=== PATIENT | female | born 1995 | race Hispanic/Latino ===

== ENCOUNTER 2020-08-28 16:43 | Emergency (ER) | payer SELFPAY ==
[2020-08-28 18:16] LABS: Bacteria/HPF 4+ HPF (None Seen); Bilirubin Negative (Negative); Blood, Urine Negative (Negative); Clarity Clear (Clear); Glucose, Urine (Dipstick) Normal (Negative); Ketone, Urine Negative (Negative); Leukocyte 250 Leu/uL (Negative); Nitrite 2+ (Negative); Protein, Urine (Dipstick) Negative (Neg-Trace); RBC/HPF 0-3 HPF (0-3); Specific Gravity, Urine 1.004 (1.002-1.036); Squamous Epithelial 0-3 HPF (0-3); Urobilinogen Normal mg/dL (Less than 2)
[2020-08-28] MEDS ORDERED: Azithromycin 250 MG TAB ONE (20:08)
[2020-08-28] MEDS ORDERED: cefTRIAXone\\ROCEPHIN 500 MG VIAL ONE (20:08)
[2020-08-28] MEDS ORDERED: Lidocaine 1% PF 5 ML VIAL ONE (20:08)
[2020-08-30 13:03] LABS: Chlamydia by PCR Not Detected (NotDetected); GC by PCR DETECTED (NotDetected)
== END 2020-08-28 20:49 | disposition home or self-care (01) ==
LOC: ERS 16:43
DX: O23.511 Infections of cervix in pregnancy, first trimester (principal); O23.41 Unspecified infection of urinary tract in pregnancy, first trimester; Z20.2 Contact with and (suspected) exposure to infections with a predominantly sexual mode of transmission; Z3A.09 9 weeks gestation of pregnancy
CPT/HCPCS: 81003; 81015; 87077; 87086; 87186; 87480; 87491; 87510; 87591; 87660; 96372; 99284; J0696